=== PATIENT | male | born 1995 | race Caucasian/White ===

== ENCOUNTER 2019-07-13 14:23 | Emergency (ER) | payer OTHER ==
[~2019-07-13] VITALS: Ht 175.3 cm; Wt 77.2 kg
[2019-07-13] MEDS ORDERED: cefTRIAXone SOD 250 MG VIAL (J0696) IM ONE (15:30)
[2019-07-13] MEDS ORDERED: LIDOCAINE 1% SDV 5 ML VIAL DILUENT ONE (15:30)
--- NOTE | 2019-07-13 15:30 | REP ---
SCROTAL ULTRASOUND: Real-time sonographic evaluation of the scrotum and contents performed. Testicles are normal in size and echotexture, right testicle measuring 4.6 x 2.6 x 3.0 cm and left testicle 4.4 x 2.4 x 2.7 cm. There is no testicular mass or torsion. Both lobes seen in each testicle with duplex Doppler evaluation, RI right testicle 0.56 and left testicle 0.63. Epididymis is unremarkable bilaterally. There is no significant fluid collection. IMPRESSION: Negative scrotal ultrasound. No mass or torsion. Electronically Signed by Brigido Schultz MD 07/14/2019 04:38 P
[2019-07-13] MEDS ORDERED: DOXY100C37 PO (15:37)
[2019-07-13 15:52] VITALS: BP 129/76
[2019-07-13 17:26] LABS: CHLAMYDIA DNA AMPLIFICATION NEGATIVE (NEGATIVE); GC DNA AMPLIFICATION NEGATIVE (NEGATIVE)
== END 2019-07-13 16:03 | disposition home or self-care (01) ==
LOC: M ED 14:23
DX: N45.1 Epididymitis (principal); Z88.0 Allergy status to penicillin
CPT/HCPCS: 76870; 81001; 87661; 93976; 96372; 99283; J0696

== ENCOUNTER 2020-09-29 17:57 | Emergency (ER) | payer OTHER ==
[~2020-09-29] VITALS: Ht 170.2 cm; Wt 80.1 kg
[~2020-09-29 17:57] MED LIST: DOXY100C37 PO
[2020-09-29] MEDS ORDERED: ACET-907 PO (18:06)
[2020-09-29] MEDS ORDERED: ONDANSETRON 4 MG ORAL DISINTEGRATING TAB PO ONE (19:15)
--- NOTE | 2020-09-29 20:52 | REPVR ---
PROCEDURE INFORMATION: Exam: CT Head Without Contrast Exam date and time: 09/29/2020 7:01 PM Age: 25 years old Clinical indication: Injury or trauma; Fall; Blunt trauma (contusions or hematomas) TECHNIQUE: Imaging protocol: Computed tomography of the head without contrast. Radiation optimization: All CT scans at this facility use at least one of these dose optimization techniques: automated exposure control; mA and/or kV adjustment per patient size (includes targeted exams where dose is matched to clinical indication); or iterative reconstruction. COMPARISON: No relevant prior studies available. FINDINGS: Brain: The white-garcia differentiation is preserved demonstrating no acute territorial type infarct. No acute intracranial hemorrhage is visualized. There is no midline shift. Right parafalcine calcifications are identified anteriorly, the largest measuring 6 mm. A small calcified meningioma cannot be excluded. Cerebral ventricles: No ventriculomegaly. Bones/joints: The calvarium demonstrates no evidence for a depressed fracture. Paranasal sinuses: Visualized sinuses are unremarkable. No fluid levels. Mastoid air cells: No mastoid effusion. Soft tissues: Unremarkable. IMPRESSION: 1. No acute intracranial abnormality. 2. Additional findings described above. Electronically signed by: Shorty Luna On 09/29/2020 20:52:53 PM
--- NOTE | 2020-09-29 20:58 | REPVR ---
PROCEDURE INFORMATION: Exam: CT Cervical Spine Without Contrast Exam date and time: 09/29/2020 7:01 PM Age: 25 years old Clinical indication: Injury or trauma; Fall; Blunt trauma TECHNIQUE: Imaging protocol: Computed tomography images of the cervical spine without contrast. Radiation optimization: All CT scans at this facility use at least one of th the alicia dose optimization techniques: automated exposure control; mA and/or kV adjustment per patient size (includes targeted exams where dose is matched to clinical indication); or iterative reconstruction. COMPARISON: No relevant prior studies available. FINDINGS: Bones/joints: No acute cervical spine fracture. The facet alignment is preserved bilaterally. The cervical lordosis is mildly reversed. Discs/Spinal canal/Neural foramina: There is mild widening of the C1-C2 articulations posteriorly and bilaterally. Ligamentous injury cannot be excluded. Slight retrolisthesis of the right C1 lateral mass on C2. Artifact limits evaluation of the lower cervical spinal canal. No significant spinal canal stenosis at the remaining cervical levels. Lymph nodes: Mildly enlarged level 2 cervical lymph nodes are visualized bilaterally. Scattered additional cervical lymph nodes are seen. Lungs: No pneumothorax, as visualized. Soft tissues: No significant prevertebral soft tissue swelling. IMPRESSION: 1. No acute cervical spine fracture. 2. There is mild widening of the C1-C2 articulations posteriorly and bilaterally. Ligamentous injury cannot be excluded. Slight retrolisthesis of the right C1 lateral mass on C2. 3. The cervical lordosis is mildly reversed. 4. If cord or ligamentous injury is clinically suspected, MRI of the cervical spine can be considered for further evaluation. Electronically signed by: Shorty Luna On 09/29/2020 20:58:47 PM
[2020-09-29 21:00] VITALS: BP 115/67
[2020-09-29] MEDS ORDERED: ZOFR4TAB16 PO (21:04)
== END 2020-09-29 22:56 | disposition home or self-care (01) ==
LOC: M ED 17:57
DX: S06.0X0A Concussion without loss of consciousness, initial encounter (principal); W22.8XXA Striking against or struck by other objects, initial encounter; Y92.89 Other specified places as the place of occurrence of the external cause; Y93.9 Activity, unspecified; Y99.1 Military activity; D32.0 Benign neoplasm of cerebral meninges; R11.10 Vomiting, unspecified; Z88.0 Allergy status to penicillin
CPT/HCPCS: 70450; 72125; 99284; Q0162